=== PATIENT | male | born 1985 | race Caucasian/White ===

== ENCOUNTER 2023-11-10 18:55 | Emergency (ER) | payer OTHER, SELFPAY ==
[2023-11-10] VITALS (13 sets, daily range): BP systolic 133–167; BP diastolic 94–100; PULSE 58–69; RESP 13–23; TEMP 36.3; O2SAT 97–100
--- NOTE | 2023-11-10 19:39 | ECG_ITS ---
Measurements Intervals [place] Rate: 62 P: 7 RI: 126 QRS: 6 QRSD: 105 T: 10 QT: 390 QTc: 397 Interpretive Statements SINUS RHYTHM MODERATE VOLTAGE CRITERIA FOR LVH, CONSIDER NORMAL VARIANT [MEETS CRITERIA IN ONE OF: R(aVL), S(V1), R(V5), R(V5/V6)+S(V1)] ABNORMAL ECG NO PREVIOUS ECG AVAILABLE FOR COMPARISON Electronically Signed On 11-11-2023 8:39:32 DIRECTOR OF ACCOUNTING by Aakash Lizarraga M.D.
--- NOTE | 2023-11-10 19:39 | ED.GENADULT ---
HPI - General Adult General Chief complaint: Unspecified Stated complaint: blood pressure Time Seen by Provider: 11/10/23 19:20 Source: patient Mode of arrival: ambulatory Limitations: no limitations History of Present Illness HPI narrative: This is a 38-year-old male who presents to the ED for chief complaint of high blood pressure. He was referred over from the urgent care. He has had intermittent blurred vision for the past several weeks and noticed another episode today. Also reports some sinus pressure. He took his blood pressure and it was really high so he would to the urgent care and was high for them as well. He has been trying to get blood pressure under control and was switched from losartan 50mg to 100mg this week. Denies vision loss, chest pain, visual field loss, shortness of breath, severe headache, neck pain, numbness, weakness. Related Data Home Medications Medication Instructions Recorded Confirmed losartan 100 mg tablet mg 11/10/23 Allergies Allergy/AdvReac Type Severity Reaction Status Date / Time Sulfa (Sulfonamide Allergy Unknown RASH Verified 11/10/23 19:34 Antibiotics) Review of Systems Review of Systems: All systems as dictated in HPI Exam Narrative: GENERAL: Well-appearing, well-nourished, and in no acute distress. HEAD: Normocephalic, atraumatic. EYES: PERRLA and EOMI. ENT: Nares clear, no rhinorrhea or epistaxis. Mucous membranes moist. Oropharynx without tonsillar hypertrophy exudate or other lesions. NECK: Supple. No adenopathy or masses. CHEST: No respiratory distress. Clear to auscultation. No wheezes rales or rhonchi HEART: Regular rate and rhythm. No murmur heard. Normal peripheral pulses. ABDOMEN: Soft, nontender, nondistended, normal active bowel sounds. MSK: Normal range of motion. No edema. SKIN: Warm, dry, no rash. NEURO: Alert and oriented x3. No focal deficits. PSYCH: Normal mood and affect. Course Vital Signs Vital signs: Vital Signs Temperature 97.4 F L 11/10/23 19:04 Pulse Rate 65 11/10/23 19:04 Respiratory Rate 18 11/10/23 19:04 Blood Pressure 167/100 H 11/10/23 19:04 Pulse Oximetry 100 11/10/23 19:04 Oxygen Delivery Room Air 11/10/23 19:04 Temperature 97.4 F L 11/10/23 19:04 Pulse Rate 67 11/10/23 20:31 Respiratory Rate 19 11/10/23 20:31 Blood Pressure 133/94 H 11/10/23 20:31 Pulse Oximetry 98 11/10/23 20:30 Oxygen Delivery Room Air 11/10/23 19:04 Medical Decision Making MDM Narrative Medical decision making narrative: This is a 38-year-old male who presents to the ED with chief complaint of elevated blood pressures. Vitals show initial elevated blood pressure of 167/100 and this normalized without intervention over course of the visit. No chest pain. EKG shows sinus rhythm. Lab work unremarkable. No evidence of any emergent hypertension. He has been having some intermittent blurred vision for the past several weeks so I instructed him to follow up with primary and with eye doctor. Symptoms consistent with asymptomatic hypertension. Pt will be discharged in stable condition. Return precautions given and supportive measures discussed. Pt is understanding and agreeable with plan for discharge and follow-up with PCP. Vital Signs Vital Signs: Vital Signs Temperature 97.4 F L 11/10/23 19:04 Pulse Rate 65 11/10/23 19:04 Respiratory Rate 18 11/10/23 19:04 Blood Pressure 167/100 H 11/10/23 19:04 Pulse Oximetry 100 11/10/23 19:04 Oxygen Delivery Room Air 11/10/23 19:04 Temperature 97.4 F L 11/10/23 19:04 Pulse Rate 67 11/10/23 20:31 Respiratory Rate 19 11/10/23 20:31 Blood Pressure 133/94 H 11/10/23 20:31 Pulse Oximetry 98 11/10/23 20:30 Oxygen Delivery Room Air 11/10/23 19:04 Lab Data 11/10/23 19:53 11/10/23 19:53 Labs: Lab Results 11/10/23 Range/Units 19:53 WBC 5.1 (4.5-10.0) K/mm3 RBC 4.81 (4.6
[2023-11-10 20:01] LABS: Basophils Absolute Auto 0.1 K/mm3 (0.0-0.1); Eosinophils Absolute Auto 0.2 K/mm3 (0-0.3); Eosinophils Percent Auto 3.3 % (0-4.4); Hematocrit 42.7 % (42.0-52.0); Hemoglobin 14.7 g/dL (14.0-18.0); Immature Granulocyte Absolute 0.01 K/mm3 (0.00-0.031); Immature Granulocyte Percent A 0.2 % (0-0.5); Lymphocytes Absolute Auto 1.63 K/mm3 (0.9-3.2); Lymphocytes Percent Auto 31.8 % (18.3-44.2); Mean Corpuscular HGB Conc 34.4 g/dl (32-36); Mean Corpuscular Hemoglobin 30.6 pg (26-34); Mean Corpuscular Volume 88.8 fl (80-100); Mean Platelet Volume 10.8 fl (7.4-10.4); Monocytes Absolute Auto 0.6 K/mm3 (0.1-0.6); Monocytes Percent Auto 11.9 % (2.6-8.5); Neutrophils Absolute Auto 2.7 K/mm3 (1.3-6.7); Neutrophils Percent Auto 51.8 % (45.5-73.1); Platelet Count Result 285 k/mm3 (150-375); Red Blood Count 4.81 M/mm3 (4.6-6.20); Red Cell Distribution Width 11.9 % (11.5-14.5); White Blood Count 5.1 K/mm3 (4.5-10.0)
[2023-11-10 20:17] LABS: Alanine Aminotransferase 84 U/L (6-50); Albumin Level 4.6 g/dL (3.5-5.1); Alkaline Phosphatase 76 U/L (38-126); Anion Gap 11 mmol/L (8-16); Aspartate Amino Transferase 70 U/L (17-59); Bilirubin,Total 0.5 mg/dL (0.2-1.3); Blood Urea Nitrogen 8 mg/dL (9-20); Calcium 9.6 mg/dL (8.4-10.2); Carbon Dioxide 22 mmol/L (22-30); Chloride 106 mmol/L (98-107); Estimated CRCL calculation 143 ml/min; Estimated Glomerular Filt Rate > 60; Glucose 123 mg/dL (65-110); Potassium 3.9 mmol/L (3.4-5.0); Sodium 139 mmol/L (137-145)
== END 2023-11-10 20:47 | disposition home or self-care (01) ==
PROVIDERS: Emergency Provider Physician Assistant; PCP Nurse Practitioner Family
DX: I10 Essential (primary) hypertension (principal)
CPT/HCPCS: 36415; 80053; 85025; 93005; 99283

== ENCOUNTER → 2023-11-13 07:48 | Outpatient (CLI) | payer OTHER, SELFPAY ==
--- NOTE | ~2023-11-13 | US_ITS ---
Limited Abdominal Sonogram: Real-time sonographic imaging of the right upper quadrant was performed. Clinical History: Elevated liver enzymes Findings: The liver appears normal with no evidence of mass lesion or bile duct dilatation. Main por marla vein demonstrates normal direction of flow. The gallbladder is well distended, and appears normal with no evidence of gallstone or wall thickening. The common bile duct measures 3 mm. The visualize d pancreas, aorta, and IVC are unremarkable. Right kidney measures 11.1 cm in length, without hydrone phrosis. Impression: No significant abnormality seen. Reviewed, dictated and finalized at location . [employer] Impression: No significant abnormality seen.
== END ==
PROVIDERS: PCP Nurse Practitioner Family; Visit Provider Nurse Practitioner Family
DX: R74.8 Abnormal levels of other serum enzymes (principal)
CPT/HCPCS: 76705